=== PATIENT | male | born 1975 | race Caucasian/White ===

== ENCOUNTER 2024-01-01 16:51 | Emergency (ER) | payer MEDICAID ==
[~2024-01-01] VITALS: Ht 180.3 cm; Wt 98.0 kg
[2024-01-01 16:57] VITALS: BP 116/69; PULSE 115; RESP 16; TEMP 98.4; O2SAT 100
[2024-01-01] MEDS ORDERED: LACTULOSE (16:57)
[2024-01-01] MEDS ORDERED: LACTULOSE 20G/30ML UDC PO ONE (21:45)
[2024-01-01] MEDS ORDERED: IBUPROFEN 600MG TABLET PO ONE (23:30)
[2024-01-02] MEDS ORDERED: LACT10SO6 MT (02:58)
== END 2024-01-02 04:11 | disposition home or self-care (01) ==
LOC: ER 16:51
DX: K76.9 Liver disease, unspecified (principal); I10 Essential (primary) hypertension; Z76.0 Encounter for issue of repeat prescription
CPT/HCPCS: 99283

== ENCOUNTER 2024-05-06 16:44 | Emergency (ER) | payer OTHER, MEDICAID ==
[~2024-05-06] VITALS: Ht 182.9 cm; Wt 109.0 kg
[~2024-05-06 16:44] MED LIST: LACT10SO6 MT; LACTULOSE
[2024-05-06 16:45] VITALS: O2SAT 100
[2024-05-06 17:31] LABS: HEMATOCRIT. 46.8 % (42.0-52.0); MEAN CORPUSCULAR HEMOGLOBIN 30.7 pg (28.0-32.0); MEAN CORPUSCULAR HGB CONC 34.3 g/dL (31.0-37.0); MEAN CORPUSCULAR VOLUME 89.7 fL (80.0-94.0); MEAN PLATELET VOLUME 8.7 fl (7.4-10.4); PLATELET 142 x1000/uL (130-400); RED BLOOD CELL COUNT 5.22 mill/uL (4.7-6.1); RED CELL DISTRIBUTION WIDTH 13.7 % (11.6-14.6); WHITE BLOOD COUNT 6.5 x1000/uL (4.5-11.0)
[2024-05-06 17:32] LABS: CHLORIDE 111 mEq/L (98-107); DIFFERENTIAL COMMENT 1; POTASSIUM 3.9 mEq/L (3.5-5.1); SODIUM 141 mEq/L (136-145)
[2024-05-06 17:33] LABS: CARBON DIOXIDE 22 mEq/L (21-32)
[2024-05-06 17:34] LABS: CALCIUM 9.3 mg/dL (8.7-10.4)
[2024-05-06 17:38] LABS: GLUCOSE 110 mg/dL (70-105); UREA NITROGEN BLOOD 10 mg/dL (9-23)
[2024-05-06 17:48] LABS: PLATELET ESTIMATE NORMAL
[2024-05-06 17:53] LABS: ETHANOL BLOOD < 10 mg/dL (<10)
[2024-05-07] MEDS: SERTRALINE HCL 50MG TABLET PO SCH (11:52)
[2024-05-07 15:06] LABS: CLARITY URINE CLOUDY (CLEAR); COLOR URINE DARK YELLOW (YELLOW); GLUCOSE URINE NEGATIVE (NEGATIVE); KETONES URINE NEGATIVE (NEGATIVE); LEUKOCYTE ESTERASE URINE TRACE (NEGATIVE); NITRITE URINE NEGATIVE (NEGATIVE); OCCULT BLOOD URINE NEGATIVE (NEGATIVE); PROTEIN URINE NEGATIVE (NEGATIVE); SPECIFIC GRAVITY URINE 1.021 (1.005-1.030)
[2024-05-07 15:20] LABS: RBC URINE NONE SEEN /hpf (0-2); SQUAMOUS EPITHELIAL CELL URINE FEW /lpf (RARE/1+); WBC URINE 0-2 /hpf (0-2)
[2024-05-07 15:21] LABS: BACTERIA URINE 1+; YEAST URINE NONE SEEN
[2024-05-07 15:22] LABS: *AMPHETAMINES SCREEN URINE PRESUMPTIVE POSITIVE (NEGATIVE); *BARBITURATES SCREEN URINE NEGATIVE (NEGATIVE); *BENZODIAZEPINES SCREEN URINE NEGATIVE (NEGATIVE); *COCAINE SCREEN URINE NEGATIVE (NEGATIVE)
[2024-05-07 15:23] LABS: CANNABINOID URINE SCREEN PRESUMPTIVE POSITIVE (NEGATIVE); ECSTASY MDMA SCREEN URINE NEGATIVE (NEGATIVE); METHADONE URINE SCREEN NEGATIVE (NEGATIVE); OPIATES URINE SCREEN NEGATIVE (NEGATIVE); PHENCYCLIDINE URINE SCREEN NEGATIVE (NEGATIVE)
[2024-05-07] MEDS: DIPHENHYDRAMINE 25MG CAPSULE PO ONE (21:30)
[2024-05-08 08:04] VITALS: BP 128/88; PULSE 75; RESP 18; TEMP 37.11408; O2SAT 98
== END 2024-05-08 09:41 | disposition home or self-care (01) ==
LOC: ER 16:44
DX: R45.851 Suicidal ideations (principal); I10 Essential (primary) hypertension; F19.90 Other psychoactive substance use, unspecified, uncomplicated; Z20.822 Contact with and (suspected) exposure to COVID-19
CPT/HCPCS: 80305; 80048; 81003; 80307; 80329; 80320; 85025; 36415; 99285; 87426; Q0163; G0480

== ENCOUNTER 2025-01-26 04:42 | Emergency (ER) | payer MEDICAID, OTHER ==
[~2025-01-26] VITALS: Ht 172.7 cm; Wt 102.0 kg
[~2025-01-26 04:42] MED LIST changes: +LACT-394 MT; -LACT10SO6 MT
[2025-01-26 04:43] VITALS: O2SAT 97
[2025-01-26 05:52] LABS: BASOPHILS % 1.2 % (0.0-2.0); EOSINOPHILS % 1.3 % (0.0-5.0); HEMATOCRIT. 45.6 % (42.0-52.0); LYMPHOCYTES % 22.8 % (20.0-50.0); MEAN CORPUSCULAR HEMOGLOBIN 30.8 pg (28.0-32.0); MEAN CORPUSCULAR HGB CONC 35.1 g/dL (31.0-37.0); MEAN CORPUSCULAR VOLUME 87.6 fL (80.0-94.0); MEAN PLATELET VOLUME 9.1 fl (7.4-10.4); MONOCYTES % 11.1 % (2.0-8.0); NEUTROPHILS % 63.6 % (40.0-76.0); PLATELET 138 x1000/uL (130-400); RED CELL DISTRIBUTION WIDTH 13.8 % (11.6-14.6)
[2025-01-26] MEDS: LACTULOSE 20G/30ML UDC PO ONE (05:55)
[2025-01-26 06:05] LABS: CHLORIDE 110 mEq/L (98-107); INR 1.1; PARTIAL THROMBOPLASTIN TIME 25.4 sec (23.4-31.0); POTASSIUM 3.2 mEq/L (3.5-5.1); PROTHROMBIN TIME 11.9 sec (9.6-11.0); SODIUM 143 mEq/L (136-145)
[2025-01-26 06:06] LABS: CARBON DIOXIDE 23 mEq/L (21-32)
[2025-01-26 06:07] LABS: CALCIUM 9.2 mg/dL (8.7-10.4)
[2025-01-26 06:11] LABS: CREATININE 0.9 mg/dL (0.6-1.3); GLUCOSE 124 mg/dL (70-105)
[2025-01-26 06:12] LABS: ETHANOL BLOOD < 10 mg/dL (<10); UREA NITROGEN BLOOD 7 mg/dL (9-23)
[2025-01-26 06:13] LABS: ALANINE AMINOTRANSFERASE 40 IU/L (10-49); AMMONIA 43 uMol/L (<32); ASPARTATE AMINOTRANSFERASE 56 IU/L (<34)
[2025-01-26 06:14] LABS: BILIRUBIN DIRECT 0.7 mg/dL (<=3.0); BILIRUBIN TOTAL 1.9 mg/dL (0.1-1.0); PROTEIN TOTAL 7.1 g/dL (6.0-8.3)
[2025-01-26] MEDS: POTASSIUM CHLORIDE 20MEQ TABLET SR PO ONE (06:56)
[2025-01-26 07:43] LABS: CLARITY URINE CLEAR (CLEAR); COLOR URINE DARK YELLOW (YELLOW); GLUCOSE URINE NEGATIVE (NEGATIVE); KETONES URINE TRACE (NEGATIVE); LEUKOCYTE ESTERASE URINE TRACE (NEGATIVE); NITRITE URINE NEGATIVE (NEGATIVE); OCCULT BLOOD URINE NEGATIVE (NEGATIVE); PH URINE 6.5 (4.5-8.0); PROTEIN URINE TRACE (NEGATIVE); SPECIFIC GRAVITY URINE 1.025 (1.005-1.030)
[2025-01-26 07:57] LABS: *AMPHETAMINES SCREEN URINE PRESUMPTIVE POSITIVE (NEGATIVE); *BARBITURATES SCREEN URINE NEGATIVE (NEGATIVE); *BENZODIAZEPINES SCREEN URINE NEGATIVE (NEGATIVE); *COCAINE SCREEN URINE NEGATIVE (NEGATIVE); CANNABINOID URINE SCREEN PRESUMPTIVE POSITIVE (NEGATIVE); ECSTASY MDMA SCREEN URINE CONF.TEST INDICATED (NEGATIVE); METHADONE URINE SCREEN NEGATIVE (NEGATIVE); OPIATES URINE SCREEN NEGATIVE (NEGATIVE); PHENCYCLIDINE URINE SCREEN NEGATIVE (NEGATIVE)
[2025-01-26 07:58] LABS: BACTERIA URINE FEW; RBC URINE 0-2 /hpf (0-2); SQUAMOUS EPITHELIAL CELL URINE NONE SEEN /lpf (RARE/1+); YEAST URINE NONE SEEN
[2025-01-26] MEDS ORDERED: CEPH500T MT (08:11)
[2025-01-26] MEDS ORDERED: LACT10SO81 MT (08:11)
[2025-01-26] MEDS: POTASSIUM CHLORIDE 10MEQ TABLET SR PO ONE (08:27)
[2025-01-26] MEDS: CEPHALEXIN 250MG CAPSULE PO ONE (08:27)
[2025-01-26 08:35] VITALS: BP 155/96; PULSE 86; RESP 19; TEMP 36.7; O2SAT 99
== END 2025-01-26 08:38 | disposition home or self-care (01) ==
LOC: ER 04:42
DX: E87.6 Hypokalemia (principal); K74.69 Other cirrhosis of liver; N39.0 Urinary tract infection, site not specified; I10 Essential (primary) hypertension; F15.90 Other stimulant use, unspecified, uncomplicated; Z76.0 Encounter for issue of repeat prescription; Z79.899 Other long term (current) drug therapy
CPT/HCPCS: 80076; 80305; 80048; 81003; 80320; 82140; 83880; 83690; 85025; 85610; 85730; 86850; 86900; 86901; 36415; 99284; Z7610 ×2; G0480

== ENCOUNTER 2025-01-26 10:46 | Emergency (ER) | payer OTHER ==
[~2025-01-26] VITALS: Ht 175.3 cm; Wt 99.7 kg
[~2025-01-26 10:46] MED LIST changes: +CEPH500T MT; +LACT10SO81 MT
[2025-01-26 10:47] VITALS: BP 165/115; PULSE 98; RESP 18; TEMP 37.1; O2SAT 95
[2025-01-26 11:53] LABS: BASOPHILS % 1.4 % (0.0-2.0); EOSINOPHILS % 2.3 % (0.0-5.0); HEMOGLOBIN. 16.2 g/dL (14.0-18.0); LYMPHOCYTES % 30.7 % (20.0-50.0); MEAN CORPUSCULAR HEMOGLOBIN 30.2 pg (28.0-32.0); MEAN CORPUSCULAR HGB CONC 34.5 g/dL (31.0-37.0); MEAN CORPUSCULAR VOLUME 87.6 fL (80.0-94.0); MEAN PLATELET VOLUME 8.9 fl (7.4-10.4); NEUTROPHILS % 53.6 % (40.0-76.0); PLATELET 139 x1000/uL (130-400); RED BLOOD CELL COUNT 5.36 mill/uL (4.7-6.1); RED CELL DISTRIBUTION WIDTH 13.9 % (11.6-14.6); WHITE BLOOD COUNT 5.6 x1000/uL (4.5-11.0)
[2025-01-26 11:55] LABS: CHLORIDE 109 mEq/L (98-107); POTASSIUM 3.9 mEq/L (3.5-5.1); SODIUM 144 mEq/L (136-145)
[2025-01-26 11:56] LABS: CALCIUM 9.2 mg/dL (8.7-10.4); CARBON DIOXIDE 27 mEq/L (21-32)
[2025-01-26 12:01] LABS: CREATININE 0.8 mg/dL (0.6-1.3); GLUCOSE 111 mg/dL (70-105); UREA NITROGEN BLOOD 7 mg/dL (9-23)
[2025-01-26 12:03] LABS: ALANINE AMINOTRANSFERASE 40 IU/L (10-49); ALBUMIN 4.1 g/dL (3.2-4.8); AMMONIA 38 uMol/L (<32); ASPARTATE AMINOTRANSFERASE 58 IU/L (<34); BILIRUBIN DIRECT 0.8 mg/dL (<=3.0); BILIRUBIN TOTAL 2.3 mg/dL (0.1-1.0); PROTEIN TOTAL 7.2 g/dL (6.0-8.3)
[2025-01-26] MEDS ORDERED: LACTULOSE 20G/30ML UDC PO ONE (12:15)
== END 2025-01-26 14:11 | disposition left against medical advice (07) ==
LOC: ER 10:46 → EDBEDREQ 11:26 → ER 14:11
DX: K74.60 Unspecified cirrhosis of liver (principal); F15.10 Other stimulant abuse, uncomplicated; N39.0 Urinary tract infection, site not specified; F41.9 Anxiety disorder, unspecified; I10 Essential (primary) hypertension; Z96.659 Presence of unspecified artificial knee joint; Z98.890 Other specified postprocedural states
CPT/HCPCS: 80076; 80048; 82140; 85025; 36415; 99283; Z7610